=== PATIENT | male | born 1960 | race Caucasian/White ===

== ENCOUNTER 2016-10-26 13:53 | Emergency (ER) | payer OTHER ==
[2016-10-26 14:05] VITALS: BP 179/86; PULSE 77; RESP 16; TEMP 98.8; O2SAT 93
--- NOTE | 2016-10-26 15:26 | UCPHY ---
H & P Patient Type: New HPI/ROS: CHIEF COMPLAINT: Right toe pain HISTORY OF PRESENT ILLNESS: Patient complains of 6 days of right toe pain and redness. This was gradual onset constant duration. Moderate to severe. Worse with palpation or movement. Does not radiate. No fever chills. No eye pain or intolerance to light. No visual disturbance. 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 No improvement with over-the- counter ibuprofen. No other associated complaints or modifying factors. PRIOR ORTHO INJURIES: Hallux rigid, or gout REVIEW OF SYSTEMS: Ten systems reviewed and are negative unless otherwise noted in the HPI EXAMINATION General Appearance: Alert, no distress Cardiovascular: Pulses normal throughout. Symmetric radial and DP pulses 2+. Brisk cap refill Neurological: A&O, sensory symmetric, strength symmetric Skin: Warm and dry. There is erythema about the right MTP joint. There is no surrounding cellulitis. No purulence. No fluctuance. No edema. Extremities: Moderate tenderness to palpation of the right great toe. Normal range of motion. Normal proprioception. Psychiatric: Mood and affect normal DIFFERENTIAL DIAGNOSES: Including but not limited to acute gout attack, gouty arthropathy, cellulitis, arthralgia, metatarsalgia MDM: 3:20 p.m. Acute gout attack of the right great toe. Patient is in no acute distress. He is afebrile. Nondiabetic. No evidence of surrounding cellulitis. No complaints that would suggest iritis. Neuro intact. Discharged home with treatment as prescribed. Follow up with primary care physician on Friday. Return sooner for worsening symptoms, fever or chills. Patient is comfortable with that plan and discharged home in stable condition. ED Precautions: Worsening pain. Erythema, edema, cyanosis, pallor, paresthesia or anesthesia. SUPERVISION: This patient was independently evaluated without direct examination by the attending physician. Case was discussed with attending physician. Smoking Status: Never smoked Constitutional: Initial Vital Signs Temperature (C) 98.8 F 10/26/16 14:00 Heart Rate 77 10/26/16 14:00 Respiratory Rate 16 10/26/16 14:00 Blood Pressure 179/86 H 10/26/16 14:00 O2 Sat (%) 93 10/26/16 14:00 O2 Delivery Mode Room Air Allergies/Adverse Reactions: No Known Allergies Allergy (Unverified 10/26/16 14:04) Home Medications: Medication Instructions Recorded Colchicine 0.6 mg PO AD #3 capsule 10/26/16 Indomethacin [INDOMETHACIN] 75 mg PO BID #14 capsule.er 10/26/16 methylPREDNISolone [Medrol Dose 1 each PO AD #0 ea 10/26/16 Cedric] oxyCODONE HCL/ACETAMINOPHEN 1 each PO Q4-6PRN PRN #15 tablet 10/26/16 [Percocet 5-325 mg Tablet] MDM/Departure - Depart Disposition: Home, Routine, Self-Care Clinical Impression: Acute gout Qualifiers: Gout site: toe Gout etiology: unspecified cause Laterality: right Qualified Code(s): M10.9 - Gout, unspecified Condition: Good Instructions: Oxycodone/Acetaminophen (By mouth), Low Purine Diet (ED), Gout ( ED) Additional Instructions: Follow-up with primary care physician. Return to ER for worsening symptoms, fever, eye pain or intolerance to light Prescriptions: Colchicine 0.6 mg PO AD #3 capsule Indomethacin [INDOMETHACIN] 75 mg PO BID #14 capsule.er methylPREDNISolone [Medrol Dose Cedric] 1 each PO AD #0 ea oxyCODONE HCL/ACETAMINOPHEN [Percocet 5-325 mg Tablet] 1 each PO Q4-6PRN PRN # 15 tablet PRN Reason: Pain, Breakthrough Referrals: MERCEDES CASTILLO [Primary Care Provider] - As per Instructions - PQRS PQRS Measurement: Not applicable
== END 2016-10-26 15:32 | disposition home or self-care (01) ==
LOC: CED 13:53
DX: M10.9 Gout, unspecified (principal)
CPT/HCPCS: 99203-PO; G0463-PO